=== PATIENT | female | born 1960 | race Caucasian/White ===

== ENCOUNTER 2019-11-21 13:23 | Day surgery (SDC) | payer BC ==
[~2019-11-21] VITALS: Ht 160 cm; Wt 148.0 kg
[~2019-11-21 13:23] MED LIST: ACET500 PO; Aspir 8181 MG PO; BENZ100A PO; DICL25ER PO; DULO30 PO; DULO60 PO; GABA300 PO; METO25 PO; MONT10T PO; Norco 7.5-3251 EACH PO; OMEP20ER PO; Robaxin750 MG PO; SUMA25 PO; Ventolin/Prove6.7 GM INH; XARELTO20 MG PO
[2019-11-21] MEDS ORDERED: XARELTO20 MG PO (14:22)
[2019-11-21] MEDS ORDERED: ZYRTEC10 M2 PO (14:23)
[2019-11-21] MEDS ORDERED: COLACE100 MG PO (14:23)
[2019-11-21] MEDS ORDERED: CALCIUM 600 +1 EA11 PO (14:24)
[2019-11-21] MEDS ORDERED: MULTIPLE VITAM1 EACH PO (14:25)
[2019-11-21 15:03] LABS: Hematocrit 42.6 % (33.0-51.0); Hemoglobin 13.7 g/dL (11.5-16.0); Mean Platelet Volume 10.9 fL (9.1-12.4); Platelet Count 202 K/mm3 (150-400)
[2019-11-21 15:21] LABS: Anion Gap 4 mmol/L (6-16); Blood Urea Nitrogen 11 mg/dL (8-24); Bun/Creatinine Ratio 17.6 (12.0-20.0); CO2, Blood 30 mmol/L (21-32); Calcium, Blood 9.3 mg/dL (8.5-10.1); Chloride, Blood 106 mmol/L (98-108); Creatinine, Blood 0.63 mg/dL (0.40-1.00); Glomerular Filtration Rate >60 (60-); Glucose, Blood 98 mg/dL (70-99); Magnesium, Blood 2.6 mg/dL (1.6-2.4); Potassium, Blood 4.1 mmol/L (3.5-5.5); Sodium, Blood 140 mmol/L (136-145)
[2019-11-21 15:28] LABS: International Normalized Ratio 1.12; Prothrombin Time Results 11.9 Sec (9.7-11.5)
--- NOTE | 2019-11-21 16:23 | NUR ---
PILY AND DCCV PERFORMED. PATIENT TOLERATED WELL. VVS. CONVERTED TO NORMAL SINUS RHYTHM. POST DCCV EKG DONE. PATIENT WAKING FROM SEDATION AND REMAINS IN SINUS RHYTHM AND ROOM AIR SATURATION IN THE MID 90%. PATIENT DRESSED AND REVIEWED ALL DISCHARGE INSTRUCTIONS WITH THE PATIENT AND . DISCHARGED HOME AFTER AWAKE/RECOVERED, VIA WHEEL CHAIR WITH DRIVING.
[2019-12-06] MEDS ORDERED: METO25 PO (09:05)
[2019-12-06] MEDS ORDERED: MONT10T PO (09:05)
[2019-12-06] MEDS ORDERED: ALLER-TEC PO (09:06)
[2019-12-06] MEDS ORDERED: ALBU90OI INH (09:07)
[2019-12-06] MEDS ORDERED: GABA300 PO (09:08)
[2019-12-06] MEDS ORDERED: SUMA25 PO (09:09)
[2019-12-06] MEDS ORDERED: Triamcinolone A15 G3 TOP (09:10)
[2019-12-06] MEDS ORDERED: Hydrocodone-Ap1 EA26 PO (09:10)
[2019-12-06] MEDS ORDERED: Robaxin750 MG PO (09:11)
[2019-12-06] MEDS ORDERED: DULO60 PO (09:11)
[2019-12-06] MEDS ORDERED: OMEP20ER PO (09:11)
[2019-12-06] MEDS ORDERED: ERGO400 PO (09:12)
[2019-12-06] MEDS ORDERED: XARELTO20 MG PO (09:13)
[2019-12-06] MEDS ORDERED: DOCU100 PO (09:13)
[2019-12-06] MEDS ORDERED: Calcium Acetat667 MG PO (09:13)
[2019-12-06] MEDS ORDERED: CENTRUM SILVER1 EAC2 PO (09:14)
[2019-12-06] MEDS ORDERED: BIOTIN PO (09:14)
== END 2019-11-21 22:45 | disposition home or self-care (01) ==
LOC: ECHO 13:23
PROVIDERS: Internal Medicine Cardiovascular Disease
PROC: 5A2204Z Restoration of Cardiac Rhythm, Single (ICD-10-PCS; principal; 2019-11-21)
DX: I48.0 Paroxysmal atrial fibrillation (principal); I48.92 Unspecified atrial flutter; I08.1 Rheumatic disorders of both mitral and tricuspid valves; I44.0 Atrioventricular block, first degree; I10 Essential (primary) hypertension; J45.909 Unspecified asthma, uncomplicated; G43.909 Migraine, unspecified, not intractable, without status migrainosus; G51.9 Disorder of facial nerve, unspecified; E66.01 Morbid (severe) obesity due to excess calories; Z68.43 Body mass index [BMI] 50.0-59.9, adult; Z88.5 Allergy status to narcotic agent; Z79.82 Long term (current) use of aspirin; Z79.01 Long term (current) use of anticoagulants; Z79.52 Long term (current) use of systemic steroids; Z79.899 Other long term (current) drug therapy; Z98.84 Bariatric surgery status
CPT/HCPCS: 80048; 83735; 85014; 85018; 85049; 85610; 92960; 93005; 93010; 93312; 93325; 99152; J2250; J3010; J7030

== ENCOUNTER 2019-12-02 17:26 | Emergency (ER) | payer BC ==
[~2019-12-02] VITALS: Ht 160 cm; Wt 144.2 kg
[~2019-12-02 17:26] MED LIST changes: +CALCIUM 600 +1 EA11 PO; +COLACE100 MG PO; +MULTIPLE VITAM1 EACH PO; +ZYRTEC10 M2 PO
[2019-12-02 19:21] LABS: BASOPHILS ABSOLUTE AUTO 0.02 K/mm3 (0.00-0.23); BASOPHILS PERCENT AUTO 0 % (0-2); EOSINOPHILS ABSOLUTE AUTO 0.03 K/mm3 (0.00-0.68); EOSINOPHILS PERCENT AUTO 0 % (0-6); Hematocrit 45.1 % (33.0-51.0); Hemoglobin 14.8 g/dL (11.5-16.0); IMMATURE GRAN ABSOLUTE AUTO 0.02 K/mm3 (0.00-0.10); IMMATURE GRAN PERCENT AUTO 0 % (0-1); LYMPHOCYTES ABSOLUTE AUTO 1.22 K/mm3 (0.84-5.20); LYMPHOCYTES PERCENT AUTO 17 % (21-46); MONOCYTES ABSOLUTE AUTO 0.48 K/mm3 (0.16-1.47); MONOCYTES PERCENT AUTO 7 % (4-13); Mean Corpuscular HGB 30.8 pg (26.0-34.0); Mean Corpuscular HGB Conc 32.8 g/dL (31.5-36.5); Mean Corpuscular Volume 94 fL (80-100); Mean Platelet Volume 10.7 fL (9.1-12.4); NEUTROPHILS ABSOLUTE AUTO 5.29 K/mm3 (1.96-9.15); NEUTROPHILS PERCENT AUTO 75 % (41-73); Platelet Count 223 K/mm3 (150-400); RDW Coefficient Variation 12.7 % (11.7-14.2); RDW Standard Deviation 44.2 fL (35.1-46.3); White Blood Cell Count 7.06 K/mm3 (4.00-11.30)
[2019-12-06] MEDS ORDERED: MONT10T PO (09:05)
[2019-12-06] MEDS ORDERED: METO25 PO (09:05)
[2019-12-06] MEDS ORDERED: ALLER-TEC PO (09:06)
[2019-12-06] MEDS ORDERED: ALBU90OI INH (09:07)
[2019-12-06] MEDS ORDERED: GABA300 PO (09:08)
[2019-12-06] MEDS ORDERED: SUMA25 PO (09:09)
[2019-12-06] MEDS ORDERED: Hydrocodone-Ap1 EA26 PO (09:10)
[2019-12-06] MEDS ORDERED: Triamcinolone A15 G3 TOP (09:10)
[2019-12-06] MEDS ORDERED: Robaxin750 MG PO (09:11)
[2019-12-06] MEDS ORDERED: OMEP20ER PO (09:11)
[2019-12-06] MEDS ORDERED: DULO60 PO (09:11)
[2019-12-06] MEDS ORDERED: ERGO400 PO (09:12)
[2019-12-06] MEDS ORDERED: XARELTO20 MG PO (09:13)
[2019-12-06] MEDS ORDERED: DOCU100 PO (09:13)
[2019-12-06] MEDS ORDERED: Calcium Acetat667 MG PO (09:13)
[2019-12-06] MEDS ORDERED: BIOTIN PO (09:14)
[2019-12-06] MEDS ORDERED: CENTRUM SILVER1 EAC2 PO (09:14)
== END 2019-12-02 20:00 | disposition home or self-care (01) ==
LOC: ER 17:26
PROVIDERS: Emergency Medicine
DX: R04.0 Epistaxis (principal); Z88.5 Allergy status to narcotic agent; Z79.01 Long term (current) use of anticoagulants; Z79.899 Other long term (current) drug therapy
CPT/HCPCS: 36415; 85025; 99283

== ENCOUNTER 2019-12-08 06:13 | Day surgery (SDC) | payer BC ==
[~2019-12-08] VITALS: Ht 160 cm; Wt 144.6 kg
[~2019-12-08 06:13] MED LIST changes: +ALBU90OI INH; +ALLER-TEC PO; +BIOTIN PO; +CENTRUM SILVER1 EAC2 PO; +Calcium Acetat667 MG PO; +DOCU100 PO; +ERGO400 PO; +Hydrocodone-Ap1 EA26 PO; +Triamcinolone A15 G3 TOP
--- NOTE | 2019-12-08 10:45 | NUR ---
CALL TO DR TORRES, UPDATED ON D/C INSTRUCTIONS, PT UP TO SIDE OF BED, STATES DECREASE IN PAIN, AMBULATORY, DENIES QUESTIONS REGARDING D/C INSTRUCTIONS. OT TO CAR WITH D/C VOLUNTEER.
== END 2019-12-08 10:45 | disposition home or self-care (01) ==
LOC: ORSCMMR 06:13 → EDSTATUS 07:30 → PRE IP 07:30 → SURS 10:45 → ORSCMMR 10:45
PROVIDERS: Otolaryngology
PROC: 093K8ZZ Control Bleeding in Nasal Mucosa and Soft Tissue, Via Natural or Artificial Opening Endoscopic (ICD-10-PCS; principal; 2019-12-08 07:30)
DX: R04.0 Epistaxis (principal); I10 Essential (primary) hypertension; I48.0 Paroxysmal atrial fibrillation; Z79.01 Long term (current) use of anticoagulants; J45.909 Unspecified asthma, uncomplicated; Z79.899 Other long term (current) drug therapy; E66.01 Morbid (severe) obesity due to excess calories; Z68.43 Body mass index [BMI] 50.0-59.9, adult
CPT/HCPCS: A9270-GY; J0171; J0330; J1100; J2250; J2405; J2704; J2710; J3010; J7120

== ENCOUNTER 2022-03-16 10:09 | Day surgery (SDC) | payer BC ==
[~2022-03-16] VITALS: Ht 160 cm; Wt 155.1 kg
[2022-03-16 11:15] LABS: BASOPHILS ABSOLUTE AUTO 0.03 K/mm3 (0.00-0.23); BASOPHILS PERCENT AUTO 0 % (0-2); EOSINOPHILS ABSOLUTE AUTO 0.15 K/mm3 (0.00-0.68); EOSINOPHILS PERCENT AUTO 2 % (0-6); Hematocrit 44.2 % (33.0-51.0); Hemoglobin 14.9 g/dL (11.5-16.0); IMMATURE GRAN ABSOLUTE AUTO 0.04 K/mm3 (0.00-0.10); IMMATURE GRAN PERCENT AUTO 1 % (0-1); LYMPHOCYTES ABSOLUTE AUTO 2.05 K/mm3 (0.84-5.20); LYMPHOCYTES PERCENT AUTO 26 % (21-46); MONOCYTES ABSOLUTE AUTO 0.68 K/mm3 (0.16-1.47); MONOCYTES PERCENT AUTO 8 % (4-13); Mean Corpuscular HGB 31.6 pg (26.0-34.0); Mean Corpuscular HGB Conc 33.7 g/dL (31.5-36.5); Mean Corpuscular Volume 94 fL (80-100); Mean Platelet Volume 9.9 fL (9.1-12.4); NEUTROPHILS PERCENT AUTO 63 % (41-73); Platelet Count 254 K/mm3 (150-400); RDW Coefficient Variation 13.5 % (11.7-14.2); RDW Standard Deviation 46.6 fL (35.1-46.3); Red Blood Cell Count 4.71 M/mm3 (3.80-5.20); White Blood Cell Count 8.05 K/mm3 (4.00-11.30)
[2022-03-16 11:30] LABS: International Normalized Ratio 1.04; Prothrombin Time Results 10.9 Sec (9.7-11.5)
[2022-03-16 11:34] LABS: Bun/Creatinine Ratio 10.7 (12.0-20.0); Calcium, Blood 9.6 mg/dL (8.5-10.1); Creatinine, Blood 0.75 mg/dL (0.40-1.00)
--- NOTE | 2022-03-16 11:44 | NUR ---
Ambulatory in Day Surgery WITH CANE. History, Chart, Medications and Allergies reviewed before start of procedure. Patient confirms NPO status and agrees with scheduled surgery. Pre-Op teaching done. Pt verbalizes understanding. Patient States Post-Procedure ride home has been arranged WITH .
--- NOTE | 2022-03-16 13:33 | NUR ---
03/16/22 1333 Ruth Capps NO ABX ORDERED
--- NOTE | 2022-03-16 13:59 | NUR ---
REPORT RECEIVED FROM STEPHANIE MARI RN. VSS. PT ON 2L NASAL CANNULA. PT REPORTS NO PAIN OR NAUSEA AT THIS TIME. PT REQUESTING PO FLUIDS AND TOLERATING THEM WELL.
--- NOTE | 2022-03-16 14:25 | NUR ---
Patient up to Ambulate independently. Gait CONSISTENT WITH BASELINE WITH CANE. Discharge instructions reviewed with patient. Patient verbalizes understanding. Copy given to patient to take home. PT VOIDED WITHOUT DIFFICULTY. PT WEANED FROM 2L NC TO ZERO LITERS AND TOLERATED WELL. Patient States Post-Procedure ride home has been arranged. Discharged via wheelchair to private car for ride home. PT BELONGINGS RETURNED TO PT.
[2022-03-18 15:11] LABS: HPV 16 Negative (Negative); HPV 18 Negative (Negative); HPV OTHER HR TYPES Negative (Negative)
== END 2022-03-16 23:09 | disposition home or self-care (01) ==
LOC: ORSCMMR 10:09 → ORD 12:00 → ORSCMMR 23:09
PROVIDERS: Obstetrics & Gynecology
PROC: 0UDB8ZX Extraction of Endometrium, Via Natural or Artificial Opening Endoscopic, Diagnostic (ICD-10-PCS; principal; 2022-03-16 12:00)
DX: N95.0 Postmenopausal bleeding (principal); Z01.419 Encounter for gynecological examination (general) (routine) without abnormal findings; I48.91 Unspecified atrial fibrillation; Z79.01 Long term (current) use of anticoagulants; J44.9 Chronic obstructive pulmonary disease, unspecified; K21.9 Gastro-esophageal reflux disease without esophagitis; E66.01 Morbid (severe) obesity due to excess calories; Z68.44 Body mass index [BMI] 60.0-69.9, adult; Z79.899 Other long term (current) drug therapy
CPT/HCPCS: 36415; 80048; 85025; 85610; 85730; 86850; 86900; 86901; 87624; 88305; 93005; 93010; G0145; J1100; J1885; J2250; J2405; J2704; J3010; J7120

== ENCOUNTER 2023-09-07 10:05 | Emergency (ER) | payer BC ==
[~2023-09-07] VITALS: Ht 160 cm; Wt 164.2 kg
[2023-09-07 10:37] VITALS: BP 126/88
== END 2023-09-07 11:42 | disposition home or self-care (01) ==
LOC: ER 10:05
DX: M25.562 Pain in left knee (principal); I48.91 Unspecified atrial fibrillation; W19.XXXA Unspecified fall, initial encounter; Z79.899 Other long term (current) drug therapy; Z88.5 Allergy status to narcotic agent
CPT/HCPCS: 73562-LT; 99283-25

== ENCOUNTER 2024-10-21 20:18 | Emergency (ER) | payer OTHER, BC ==
[~2024-10-21] VITALS: Ht 160 cm; Wt 156.5 kg
[2024-10-21 21:47] LABS: BASOPHILS ABSOLUTE AUTO 0.03 K/mm3 (0.00-0.23); BASOPHILS PERCENT AUTO 0 % (0-2); EOSINOPHILS ABSOLUTE AUTO 0.16 K/mm3 (0.00-0.68); EOSINOPHILS PERCENT AUTO 2 % (0-6); Hematocrit 40.3 % (33.0-51.0); Hemoglobin 13.3 g/dL (11.5-16.0); IMMATURE GRAN ABSOLUTE AUTO 0.02 K/mm3 (0.00-0.10); IMMATURE GRAN PERCENT AUTO 0 % (0-1); LYMPHOCYTES ABSOLUTE AUTO 1.67 K/mm3 (0.84-5.20); LYMPHOCYTES PERCENT AUTO 22 % (21-46); MONOCYTES ABSOLUTE AUTO 0.82 K/mm3 (0.16-1.47); MONOCYTES PERCENT AUTO 11 % (4-13); Mean Corpuscular HGB Conc 33.0 g/dL (31.5-36.5); Mean Corpuscular Volume 94 fL (80-100); NEUTROPHILS ABSOLUTE AUTO 4.95 K/mm3 (1.96-9.15); NEUTROPHILS PERCENT AUTO 65 % (41-73); NRBC ABSOLUTE 0.00 K/mm3 (0.00-0.02); NRBC Auto 0.0 /100 WBC (0.0-0.2); Platelet Count 233 K/mm3 (150-400); RDW Coefficient Variation 14.4 % (11.7-14.2); RDW Standard Deviation 50.1 fL (35.1-46.3)
[2024-10-21 22:04] LABS: Alanine Aminotransfer (ALT/SGP 35.0 U/L (12-78); Albumin, Blood 3.3 g/dL (3.4-5.0); Albumin/Globulin Ratio 1.0 (0.8-1.8); Anion Gap 7.0 mmol/L (3-11); Aspartate Aminotrans (AST/SGOT 34.0 U/L (12-37); Bilirubin, Total 0.4 mg/dL (0.1-1.0); Blood Urea Nitrogen 8.0 mg/dL (8-24); CO2, Blood 28.0 mmol/L (21-32); Calcium, Blood 9.0 mg/dL (8.5-10.1); Chloride, Blood 108.0 mmol/L (98-108); Creatinine, Blood 0.58 mg/dL (0.40-1.00); Globulin, Blood 3.3 g/dL (2.2-4.0); Glucose, Blood 109.0 mg/dL (70-99); Potassium, Blood 3.8 mmol/L (3.5-5.5); Sodium, Blood 139.0 mmol/L (136-145); Total Protein, Blood 6.6 g/dL (6.4-8.2)
[2024-10-21] MEDS ORDERED: FentaNYL Citrate 50 MCG/ML 2 ML Injection IV ONE (23:25)
[2024-10-21 23:30] VITALS: BP 145/104
[2024-10-22] MEDS ORDERED: LORazepam 2 MG/ML 1ML Injection IV ONE (00:10)
[2024-10-22] MEDS ORDERED: ACET500 PO (02:03)
== END 2024-10-22 02:00 | disposition home or self-care (01) ==
LOC: ER 20:18
PROVIDERS: Student in an Organized Health Care Education/Training Program
DX: S20.212A Contusion of left front wall of thorax, initial encounter (principal); F41.1 Generalized anxiety disorder; I48.91 Unspecified atrial fibrillation; J44.9 Chronic obstructive pulmonary disease, unspecified; V89.2XXA Person injured in unspecified motor-vehicle accident, traffic, initial encounter; Z79.899 Other long term (current) drug therapy; Z88.5 Allergy status to narcotic agent; Z91.041 Radiographic dye allergy status
CPT/HCPCS: 70450; 71046; 71260; 72125; 74177; 80053; 84484; 85025; 93005; 93010; 96374-59; 96375; 99284-25; J2060; J3010; Q9967